=== PATIENT | male | born 1965 | race Caucasian/White ===

== ENCOUNTER 2020-12-20 07:59 | Emergency (ER) | payer MEDICARE, MEDICAID ==
[~2020-12-20] VITALS: Ht 175.3 cm; Wt 79.5 kg
[~2020-12-20 07:59] MED LIST: ACET80DR51; BENZ1TAB7 PO; DIPH25TA89 PO; IBUP-1984 PO; ILOP8TAB2 PO; RISP0.256 PO; TRAZ-91 PO
[2020-12-20] MEDS ORDERED: ibuprofen tablet 400 MG TABLET PO ONE (08:20)
[2020-12-20 08:51] VITALS: BP 145/85
[2020-12-20] MEDS ORDERED: oxyCODONE/APAP 5-325mg tablet PO ONE (09:05)
[2020-12-20] MEDS ORDERED: OXYC-145 PO (09:19)
[2020-12-20] MEDS ORDERED: IBUP-1985 PO (09:19)
== END 2020-12-20 10:16 | disposition home or self-care (01) ==
LOC: ER 07:59
DX: S32.592A Other specified fracture of left pubis, initial encounter for closed fracture (principal); R10.2 Pelvic and perineal pain; M25.552 Pain in left hip; Z79.899 Other long term (current) drug therapy; W19.XXXA Unspecified fall, initial encounter; Y93.89 Activity, other specified; Y92.89 Other specified places as the place of occurrence of the external cause; Y99.8 Other external cause status
CPT/HCPCS: 73502; 99284

== ENCOUNTER 2023-09-28 09:59 | Outpatient (CLI) | payer MEDICARE, MEDICAID ==
[~2023-09-28 09:59] MED LIST changes: -BENZ1TAB7 PO; +BENZ1TAB93 PO; +IBUP-1985 PO; +OXYC-145 PO
== END 2023-09-28 23:59 | disposition home or self-care (01) ==
LOC: RAD 09:59
PROVIDERS: ATTEND Nurse Practitioner Psychiatric/Mental Health
DX: Z79.899 Other long term (current) drug therapy (principal)
CPT/HCPCS: 93005